=== PATIENT | male | born 1955 ===

== ENCOUNTER 2020-06-30 08:27 | Day surgery (SDC) | payer OTHER | END 2020-06-30 14:15 | disposition home or self-care (01) | LOC: AMB-ENDOS 08:27 | PROVIDERS: ATTEND Surgery | DX: D12.1 Benign neoplasm of appendix (principal); D12.0 Benign neoplasm of cecum; Z20.828 Contact with and (suspected) exposure to other viral communicable diseases ==

== ENCOUNTER 2020-08-15 11:00 | Inpatient (IN) | payer OTHER ==
[~2020-08-15] VITALS: Ht 177.8 cm; Wt 99.8 kg
[2020-08-15] MEDS ORDERED: IBERSARTAN PO (16:27)
[2020-08-15] MEDS ORDERED: CIALIS PO (16:28)
[2020-08-15] MEDS ORDERED: CHILDREN'S ASPI81 MG PO (16:28)
[2020-08-22] MEDS ORDERED: LOSARTAN POTAS100 MG (08:00)
[2020-08-22] MEDS ORDERED: TADALAFIL5 MG (08:00)
[2020-08-22] MEDS ORDERED: TAMSULOSIN HCL0.4 MG (08:00)
[2020-08-22] MEDS ORDERED: IRBESARTAN150 MG (08:01)
== END 2020-08-24 12:38 | disposition home or self-care (01) | DRG 395 ==
LOC: SURG 08-22 05:30 → O/R 08-22 05:30 → SURH 08-22 07:00 → SURG 08-22 11:53
PROVIDERS: ADMIT Surgery; ATTEND Surgery
PROC: 0DBH4ZX Excision of Cecum, Percutaneous Endoscopic Approach, Diagnostic (ICD-10-PCS; principal; 2020-08-22 07:00)
DX: D12.0 Benign neoplasm of cecum (principal); I10 Essential (primary) hypertension